=== PATIENT | male | born 1930 | race Caucasian/White ===

== ENCOUNTER 2016-12-21 14:01 | Inpatient (IN) | payer MEDICARE, BC ==
[~2016-12-21 14:01] MED LIST: ARIXTRA2.5 MG/0.5 SQ; ASPIR 8181 MG PO; ATENOLOL25 MG PO; CRESTOR40 MG PO; FLEXERIL10 MG PO; HYDROCODON-ACE1 EAC1 PO; LIPITOR40 M1 PO; MILK OF MA400 MG/5 M PO; MILK OF MAGNESIA PO; NORCO 5/325 TAB1 TAB PO; TERAZOSIN HCL PO; TERAZOSIN HCL5 MG PO; TYLENOL EXTRA500 M1 PO; TYLENOL500 MG PO; ULTRAM50 MG PO
[2016-12-21] MEDS ORDERED: AMIODARONE HCL200 M1 PO (14:23)
[2016-12-21] MEDS ORDERED: PRILOSEC OTC20 M1 PO (14:24)
[2016-12-21] MEDS ORDERED: LASIX40 M1 PO (14:25)
[2016-12-21] MEDS ORDERED: PREDNISONE20 M1 PO (14:25)
[2016-12-21] MEDS ORDERED: PRAVACHOL80 M1 PO (14:26)
[2016-12-21] MEDS ORDERED: XARELTO15 M1 PO (14:26)
[2016-12-21] MEDS ORDERED: NEOMYCIN OP (14:26)
[2016-12-21] MEDS ORDERED: POLYMYXIN B OP (14:26)
[2016-12-21] MEDS ORDERED: EQ ALLERGY & S1 EACH PO (14:26)
[2016-12-21] MEDS ORDERED: DEXAMETHASONE OP (14:26)
[2016-12-21 14:49] LABS: INR 1.8 INR (0.9-1.1); PROTHROMBIN TIME 21.1 SECONDS (9.0-13.6)
[2016-12-21 14:54] LABS: HCT-HEMATOCRIT 36.8 % (36.0-53.5); HGB-HEMOGLOBIN 12.3 gm/dl (13.5-17.0); MCHC MEAN CORPUSCULAR HGB CONC 33.4 % (32.0-36.0); MCV (MEAN CELL VOLUME) 83.6 fl (82.0-96.0); MEAN PLATELET VOLUME 9.7 cmc (9.4-12.4); NEUTROPHIL-AUTOMATED 0.9 tho/cmm (1.6-8.0); PLATELET COUNT 198 tho/cmm (150-450); RED CELL DISTRIBUTION WIDTH 14.4 % (12.4-16.4)
[2016-12-21 14:58] LABS: WHITE BLOOD COUNT 1.7 tho/cmm (4.0-10.0)
[2016-12-21 15:05] LABS: ALB/GLOB RATIO 0.7 (0.8-2.0); ALBUMIN 2.9 g/dl (3.5-5.0); ALKALINE PHOSPHATASE 92 U/L (33-138); ALT/SGPT 43 U/L (12-78); ANION GAP 14 mmol/L (0-20); AST/SGOT 46 U/L (10-40); BILIRUBIN,TOTAL 0.5 mg/dl (0.0-1.5); BLOOD UREA NITROGEN 26 mg/dl (6-24); CALCIUM 8.1 mg/dl (8.5-10.5); CARBON DIOXIDE-VENOUS 25 mmol/L (22-32); CHLORIDE 101 mmol/l (96-110); CREATININE 1.31 mg/dl (0.60-1.30); GLUCOSE 149 mg/dL (70-110); POTASSIUM 3.8 mmol/L (3.7-5.1); SODIUM 136 mmol/L (135-145); eGFR VALUE FOR BLACK 58 mL/Min
[2016-12-21 15:36] LABS: BAND % 9 % (0-20); BAND ABSOLUTE COUNT 0.2 tho/cmm (0-2.0); EOSINOPHIL % 1 % (0-7)
[2016-12-21 17:00] LABS: URINE BILIRUBIN NEGATIVE (NEG); URINE BLOOD NEGATIVE (NEG); URINE GLUCOSE (UA) NEGATIVE (NEG); URINE KETONE NEGATIVE (NEG); URINE LEUKOCYTE ESTERASE NEGATIVE (NEG); URINE NITRITE NEGATIVE (NEG); URINE PH 6.5 (5.0-8.0); URINE PROTEIN SMALL (NEG); URINE SPECIFIC GRAVITY 1.005 (1.003-1.030)
[2016-12-21 17:01] LABS: URINE APPEARANCE CLEAR; URINE COLOR YELLOW
[2016-12-21 17:21] LABS: PROCALCITONIN 0.36 ng/ml (0.05-0.09)
[2016-12-22 07:47] LABS: EOS % 0.9 % (0-7); HGB-HEMOGLOBIN 11.1 gm/dl (13.5-17.0); IMMATURE GRANULOCYTES ABSOLUTE 0.16 tho/cmm (0-0.03); LYMPH % 5.6 % (20-45); LYMPH ABSOLUTE COUNT 0.1 tho/cmm (0.8-4.5); MCH (MEAN CORPUSCULAR HGB) 27.5 pg (28.0-32.0); MCHC MEAN CORPUSCULAR HGB CONC 32.6 % (32.0-36.0); MCV (MEAN CELL VOLUME) 84.4 fl (82.0-96.0); MEAN PLATELET VOLUME 9.4 cmc (9.4-12.4); MONO % 7.5 % (0-12); MONOCYTE ABSOLUTE COUNT 0.1 tho/cmm (0.0-1.2); NEUTROPHIL ABSOLUTE COUNT 0.8 tho/cmm (1.6-8.0); NEUTROPHIL-AUTOMATED 0.8 tho/cmm (1.6-8.0); PLATELET COUNT 180 tho/cmm (150-450); RED BLOOD COUNT 4.03 mil/cmm (4.40-5.70); RED CELL DISTRIBUTION WIDTH 14.5 % (12.4-16.4)
[2016-12-22 07:49] LABS: WHITE BLOOD COUNT 1.1 tho/cmm (4.0-10.0)
[2016-12-22 07:58] LABS: ANION GAP 12 mmol/L (0-20); BLOOD UREA NITROGEN 19 mg/dl (6-24); CALCIUM 7.5 mg/dl (8.5-10.5); CARBON DIOXIDE-VENOUS 27 mmol/L (22-32); CHLORIDE 107 mmol/l (96-110); CREATININE 1.15 mg/dl (0.60-1.30); GLUCOSE 112 mg/dL (70-110); POTASSIUM 3.6 mmol/L (3.7-5.1); SODIUM 142 mmol/L (135-145); eGFR VALUE FOR BLACK 67 mL/Min
[2016-12-22] MEDS ORDERED: BENADRYL25 M3 PO (10:09)
[2016-12-23 06:19] LABS: HCT-HEMATOCRIT 36.1 % (36.0-53.5); MCHC MEAN CORPUSCULAR HGB CONC 33.2 % (32.0-36.0); MCV (MEAN CELL VOLUME) 84.3 fl (82.0-96.0); MEAN PLATELET VOLUME 9.5 cmc (9.4-12.4); NEUTROPHIL-AUTOMATED 0.8 tho/cmm (1.6-8.0); RED BLOOD COUNT 4.28 mil/cmm (4.40-5.70); RED CELL DISTRIBUTION WIDTH 14.7 % (12.4-16.4)
[2016-12-23 06:21] LABS: EOS % 8.9 % (0-7); EOSINOPHIL ABSOLUTE COUNT 0.2 tho/cmm (0.0-0.7); IMMATURE GRANULOCYTES ABSOLUTE 0.47 tho/cmm (0-0.03); IMMATURE GRANULOCYTES PERCENT 27.8 % (0-0.3); LYMPH % 11.2 % (20-45); LYMPH ABSOLUTE COUNT 0.2 tho/cmm (0.8-4.5); MONO % 5.9 % (0-12); MONOCYTE ABSOLUTE COUNT 0.1 tho/cmm (0.0-1.2); NEUTROPHIL ABSOLUTE COUNT 0.8 tho/cmm (1.6-8.0); NEUTROPHILS % 46.2 % (40-80)
[2016-12-23 06:22] LABS: WHITE BLOOD COUNT 1.7 tho/cmm (4.0-10.0)
[2016-12-23 06:32] LABS: ANION GAP 11 mmol/L (0-20); BLOOD UREA NITROGEN 16 mg/dl (6-24); CALCIUM 7.7 mg/dl (8.5-10.5); CARBON DIOXIDE-VENOUS 28 mmol/L (22-32); CHLORIDE 108 mmol/l (96-110); CREATININE 1.11 mg/dl (0.60-1.30); GLUCOSE 95 mg/dL (70-110); POTASSIUM 3.5 mmol/L (3.7-5.1); SODIUM 143 mmol/L (135-145); eGFR VALUE FOR BLACK 70 mL/Min
[2016-12-23 07:18] LABS: PLATELET COUNT 193 tho/cmm (150-450)
[2016-12-24 06:14] LABS: EOS % 8.6 % (0-7); EOSINOPHIL ABSOLUTE COUNT 0.1 tho/cmm (0.0-0.7); HCT-HEMATOCRIT 39.3 % (36.0-53.5); HGB-HEMOGLOBIN 13.2 gm/dl (13.5-17.0); IMMATURE GRANULOCYTES ABSOLUTE 0.05 tho/cmm (0-0.03); IMMATURE GRANULOCYTES PERCENT 4.8 % (0-0.3); LYMPH % 22.9 % (20-45); LYMPH ABSOLUTE COUNT 0.2 tho/cmm (0.8-4.5); MCHC MEAN CORPUSCULAR HGB CONC 33.6 % (32.0-36.0); MCV (MEAN CELL VOLUME) 83.3 fl (82.0-96.0); MEAN PLATELET VOLUME 9.8 cmc (9.4-12.4); MONO % 5.7 % (0-12); MONOCYTE ABSOLUTE COUNT 0.1 tho/cmm (0.0-1.2); NEUTROPHIL ABSOLUTE COUNT 0.6 tho/cmm (1.6-8.0); NEUTROPHIL-AUTOMATED 0.6 tho/cmm (1.6-8.0); PLATELET COUNT 218 tho/cmm (150-450); RED BLOOD COUNT 4.72 mil/cmm (4.40-5.70); RED CELL DISTRIBUTION WIDTH 14.7 % (12.4-16.4)
[2016-12-24 06:15] LABS: WHITE BLOOD COUNT 1.1 tho/cmm (4.0-10.0)
[2016-12-24 06:21] LABS: ANION GAP 12 mmol/L (0-20); BLOOD UREA NITROGEN 15 mg/dl (6-24); C-REACTIVE PROTEIN 14.9 mg/dl (0-0.9); CALCIUM 7.9 mg/dl (8.5-10.5); CARBON DIOXIDE-VENOUS 27 mmol/L (22-32); CHLORIDE 104 mmol/l (96-110); CREATININE 1.21 mg/dl (0.60-1.30); GLUCOSE 100 mg/dL (70-110); POTASSIUM 3.4 mmol/L (3.7-5.1); SODIUM 140 mmol/L (135-145); eGFR VALUE FOR BLACK 63 mL/Min
[2016-12-24] MEDS ORDERED: TYLENOL325 M2 PO (10:27)
[2016-12-24] MEDS ORDERED: KEFLEX500 M4 PO (10:28)
== END 2016-12-24 17:11 | DRG 872 ==
LOC: EDMED 14:01 → EMR2 16:53 → PCUA 19:10
PROVIDERS: Emergency Medicine; Family Medicine; Hospitalist; Internal Medicine; ADMIT Internal Medicine
PROC: 05HC33Z Insertion of Infusion Device into Left Basilic Vein, Percutaneous Approach (ICD-10-PCS; principal; 2016-12-22)
DX: A41.9 Sepsis, unspecified organism (principal); I95.9 Hypotension, unspecified; C85.10 Unspecified B-cell lymphoma, unspecified site; I24.8 Other forms of acute ischemic heart disease; L03.211 Cellulitis of face; I48.0 Paroxysmal atrial fibrillation; K21.9 Gastro-esophageal reflux disease without esophagitis; E78.5 Hyperlipidemia, unspecified; Z96.653 Presence of artificial knee joint, bilateral; Z66 Do not resuscitate; D72.819 Decreased white blood cell count, unspecified; I10 Essential (primary) hypertension; J32.8 Other chronic sinusitis; E87.6 Hypokalemia; E78.00 Pure hypercholesterolemia, unspecified; Z79.01 Long term (current) use of anticoagulants; Z95.2 Presence of prosthetic heart valve; Z23 Encounter for immunization
CPT/HCPCS: C1751; G0009; J0696; J2543; J3370; J7030